=== PATIENT | female | born 1960 | race Caucasian/White ===

== ENCOUNTER 2018-08-08 21:47 | Observation (INO) ==
[2018-08-08 22:20] LABS: Bilirubin,Urine Negative (Negative); Blood,Urine Negative (Negative); Clarity,Urine Clear (Clear); Color,Urine Yellow (Yellow); Glucose,Urine (UA) Normal (Normal); Ketones,Urine Trace mg/dL (Negative); Leukocyte Esterase,Urine Small (Negative); Nitrite,Urine Negative (Negative); PH,Urine 6.5 pH Units (5.0-8.0); Protein,Urine Negative (Neg-Trace); Specific Gravity,Urine 1.013 (1.010-1.025); Urobilinogen,Urine Normal (Normal)
[2018-08-08 22:22] LABS: Basophils % 0.5 %; Eosinophils % 0.6 %; Hemoglobin 14.7 g/dL (11.5-15.4); Immature Granulocytes % 0.2 % (0-4); Lymphocytes # 2.4 K/mcL (0.6-4.6); Mean Corpuscular HGB Conc 34.2 g/dL (31.6-35.5); Mean Corpuscular Hemoglobin 29.7 pg (28.0-33.3); Mean Corpuscular Volume 86.9 fL (83.0-100.0); Mean Platelet Volume 8.7 fL (9.4-12.4); Monocytes # 0.5 K/mcL (0.0-1.3); Monocytes % 7.2 %; Neutrophils # 3.5 K/mcL (1.6-8.9); Platelet Count 250 K/mcL (140-400); Red Blood Count 4.95 M/mcL (3.82-4.97); Red Cell Distribution Width 12.3 % (11.5-14.5); Segmented Neutrophils % 54.5 %; White Blood Count 6.4 K/mcL (4.3-11.1)
[2018-08-08 22:24] LABS: Bacteria,Urine None Seen per hpf (None-Few); Hyaline Casts,Urine None Seen per lpf (None-Few); Squamous Epithelial Cell,Urine Many per lpf (None-Few)
[2018-08-08] MEDS ORDERED: *HR* FentaNYL (PF) 100 MCG/2 ML VIAL IVP ONE (22:24)
--- NOTE | 2018-08-08 22:24 | Emergency Department Note ---
Disposition Clinical Impression: Ureterolithiasis, Renal colic on right side, Acute kidney injury Disposition: Admitted As Inpatient Condition: Good Time of Disposition: 06:54 General Adult HPI - General Chief complaint: ED Abdominal Pain Stated complaint: R Kidney Stone Time Seen by Provider: 08/08/18 22:24 Source: patient, family Mode of arrival: ambulatory Limitations: no limitations Nursing Notes Reviewed: Yes Vital Signs Reviewed: Yes - History of Present Illness HPI Narrative: 58-year-old female past medical history of multiple recurrent renal lithiasis. Patient estimates that she is past 12 stones in her lifetime. Patient is currently being treated by Dr. Graham in urology for a 6 mm stone in the right kidney. Patient passed a 3 mm stone last Friday and was scheduled for lithotripsy to be performed the following day. Patient states that she declined lithotripsy at this time due to pain from prior kidney stone. Lithotripsy was rescheduled for the following Friday the patient states that today she feels as though the stone is moving and is now having excruciating pain in the right lower quadrant of her abdomen 10 out of 10 on the pain scale, consistent with pr ior episodes of kidney stone. Nonradiating, no fevers, chills no chest pain or shortness of breath, no nausea or vomiting, no urinary symptoms, no abnormal bleeding. Patient has no other concerns or complaints at this time. Onset (ago): day(s) Location: abdomen Radiation: non-radiation Pain Severity: severe, similar to prior episodes Pain Scale: 10 Quality: stabbing, sharp Consistency: constant, Worsening Associated symptoms: Reports: nausea/vomiting Treatments Prior to Arrival: none - Related Data Home Medications Medication Instructions Recorded Confirmed Levothyroxine [Synth[place]] [place] [address]/22/17 08/08/18 Lovastatin 10 mg PO DAILY 12/22/17 08/08/18 Allergies Allergy/AdvReac Type Severity Reaction Status Date / Time No Known Allergies Allergy Verified 08/08/18 21:54 Review of Systems: *See History of Present Illness for more detail Constitutional: Denies: fever, chills Cardiovascular: Denies: chest pain Respiratory: Denies: dyspnea, cough, hemoptysis Gastrointestinal: Admits to right lower quadrant abdominal pain, nausea due to pain Denies: nausea, vomiting, diarrhea, constipation, hematemesis, melena, hematochezia Genitourinary: Denies: hematuria Musculoskeletal: Denies: back pain, neck pain Neurological: Denies: headache, weakness, lightheadedness/dizziness, numbness, paresthesias, difficulty with ambulation. Endocrine: Denies: fatigue All systems ED: reviewed and negative except as stated. Review of Systems: As Per HPI Past Medical History - Past Medical History Medical history: Reports: kidney stones - Social History Smoking Status: Never smoker Smokeless Tobacco Status: No Alcohol use: Reports: none Drug use: Reports: none Physical Exam Constitutional: Patient appears in moderate distress due to pain is extremely uncomfortable, is unable to find a position of relief, she is otherwise [id number], engaged to conversation, speech is fluid, answers questions appropriately Neuro: GCS 15, no overt focal neurological deficits Head: Atraumatic, normocephalic Eyes: Pupils equal, round and reactive to light, no scleral icterus, no conjunctival injection Neck: Trachea midline without deviation. Anterior neck is supple without swelling. *Chest: Symmetric chest wall rise *Heart: Cardiac rhythm and rate are regular with S1 and S2 , no S3 or S4 appreciated, no murmurs, gallops, rubs, or clicks. *Lungs: Lungs are clear to auscultation bilaterally, without accessory muscle use or prolonged expiratory phase. No wheezes, rhonchi or stridor appreciated. Abdomen: Abdomen is diffusely tender to palpation. Abdomen is flat, soft to palpation, normal bowel sounds. No abdominal bruit auscultated. Non-distended, non-rigid, no organomegaly, no ascites appreciated. No pulsatile mass, no guarding to palpation in all four quadrants, no rebound Extremities: Normal capillary refill without evidence of pedal edema, joint swelling or erythema. Pulses/motor/sensory intact in all 4 extremities. Psychiatric exam: Patient displays a normal affect and mood for the environment. No overt signs of hallucination. Integumentary: warm, dry, intact, normal color. No rash, cyanosis, diaphoresis, erythema, or pallor - General Limitations: no limitations General appearance: alert, in no apparent distress Course Course Narrative: Concern for obstructing renal lithiasis in the right ureter. Evaluations: Abdominal labs plus CT scan of the abdomen and pelvis Treatments: IV fluid, fentanyl and Zofran for the management of patient's sympto ms. *Patient was given an initial dose of fentanyl and the ED for management of pain which did not significantly relieve her symptoms. 0.5 mg Dilaudid was administered - Reevaluation(s) Reevaluation #1: Spoke with Dr. Graham in urology regarding management here in the ED. Dr. Graham agrees with our current treatment and plan for disposition requests admission to hospitalist medicine service with urology consult. Patient will be admitted to hospitalist medicine service for further evaluation and management of severe pain in the setting of severe hydroureter nephrosis and renal lithiasis. Vital Signs Temperature 97.9 F 08/08/18 21:52 Pulse Rate 73 08/08/18 21:52 Respiratory Rate 16 08/08/18 21:52 Blood Pressure 154/92 08/08/18 21:52 O2 Sat by Pulse Oximetry 99 08/08/18 21:52 Temperature 97.4 F L 08/09/18 06:13 Pulse Rate 64 08/09/18 06:13 Respiratory Rate 15 08/09/18 06:13 Blood Pressure 113/70 08/09/18 06:13 O2 Sat by Pulse Oximetry 96 08/09/18 06:13 Oxygen Delivery Oxygen Delivery Room Air Medical Decision Making - MDM Narrative Medical decision making narrative: Imaging results show right-sided hydroureter nephrosis Elevated creatinine 1.66 with estimate GFR 33 Urology is consulted and is following. Patient admitted to hospital medicine service for pain control. Patient is hemodynamically stable time of admission Dr. Santiago accepting admission. - Lab Data Lab results reviewed: Yes I reviewed the patient's lab results. Result diagrams: 08/08/18 22:07 08/08/18 22:07 Lab Results 08/08/18 08/08/18 08/08/18 Range/Units 22:07 22:07 22:07 WBC 6.4 (4.3-11.1) K/mcL RBC 4.95 (3.82-4.97) M/mcL Hgb 14.7 (11.5-15.4) g/dL Hct 43.0 (35.3-44.9) % MCV 86.9 (83.0-100.0) fL MCH 29.7 (28.0-33.3) pg MCHC 34.2 (31.6-35.5) g/dL RDW 12.3 (11.5-14.5) % Plt Count 250 (140-400) K/mcL MPV 8.7 L (9.4-12.4) fL Immature Gran % 0.2 (0-4) % Seg Neutrophils % 54.5 % Lymphocytes % 37.0 % Monocytes % 7.2 % Eosinophils % 0.6 % Basophils % 0.5 % Neutrophils # 3.5 (1.6-8.9) K/mcL Lymphocytes # 2.4 (0.6-4.6) K/mcL Monocytes # 0.5 (0.0-1.3) K/mcL Eosinophils # 0.0 (0.0-0.6) K/mcL Basophils # 0.0 (0.0-0.2) K/mcL Sodium 142 (136-145) mEq/L Potassium 3.6 (3.5-5.1) mEq/L Chloride 103 (98-107) mEq/L Carbon Dioxide 28 (23-29) mEq/L BUN 18 (6-20) mg/dL Creatinine 1.61 H (0.60-1.20) mg/dL Est GFR ( Amer) 40 L (> 60) Est GFR (Non-Af Amer) 33 L (> 60) BUN/Creatinine Ratio 11 (6-26) Glucose 99 (70-105) mg/dL Calculated Osmolality 296 (280-300) Calcium 10.2 (8.6-10.3) mg/dL Total Bilirubin 0.5 (0.3-1.0) mg/dL Direct Bilirubin 0.1 (0.0-0.2) mg/dL Indirect Bilirubin 0.4 (0.0-1.2) mg/dL AST 24 (13-39) Units/L ALT 19 (7-52) Units/L Alkaline Phosphatase 58 (34-104) Units/L Serum Total Protein 7.6 (6.4-8.9) g/dL Albumin 5.2 (3.5-5.7) g/dL Globulin 2.4 (2.4-3.5) g/dL Albumin/Globulin Ratio 2.2 (1.1-2.2) Amylase 55 (29-103) Units/L Lipase 15 (11-82) Units/L Urine Color Yellow (Yellow) Urine Clarity Clear (Clear) Urine pH 6.5 (5.0-8.0) pH Units Ur Specific [place] 1.013 (1.010-1.025) Urine Protein Negative (Neg-Trace) mg/dL Urine Glucose (UA) Normal (Normal) mg/dL Urine Ketones Trace H (Negative) mg/dL Urine Blood Negative (Negative) Urine Nitrite Negative (Negative) Urine Bilirubin Negative (Negative) Urine Urobilinogen Normal (Normal) mg/dL Ur Leukocyte Esterase Small H (Negative) Urine Microscopic RBC 3-5 H (0-3) per hpf Urine Microscopic WBC 5-15 H (0-3) per hpf Ur Squamous Epith Cells Many H (None-Few) per lpf Urine Bacteria None Seen (None-Few) per hpf Hyaline Casts None Seen (None-Few) per lpf Ur Culture Indicated? YES A (NO) - Radiology Data Radiology results reviewed: Yes I reviewed the patient's radiology results. Abdomen/Pelvis CT 08/08/18 23:09 IMPRESSION: Right-sided hydroureteronephrosis again seen. The tiny calculus at the ureterovesical junction on the right is now within the urinary bladder. D/ / Young Brock MD / Young Brock MD Interpreting Provider: Young Brock MD
[2018-08-08] MEDS ORDERED: Ondansetron 4 MG/2 ML VIAL IVP STA (22:25)
[2018-08-08] MEDS ORDERED: 0.9 % Sodium Chloride 1,000 ML IVC ONE (22:25)
[2018-08-08 22:44] LABS: Albumin 5.2 g/dL (3.5-5.7); Albumin/Globulin Ratio 2.2 (1.1-2.2); Bilirubin,Direct 0.1 mg/dL (0.0-0.2); Bilirubin,Indirect 0.4 mg/dL (0.0-1.2); Bilirubin,Total 0.5 mg/dL (0.3-1.0); Calcium 10.2 mg/dL (8.6-10.3); Globulin 2.4 g/dL (2.4-3.5); Potassium 3.6 mEq/L (3.5-5.1); Total Protein 7.6 g/dL (6.4-8.9)
[2018-08-08] MEDS ORDERED: *HR* HYDROmorphone (PF) 1 MG/ML SYRINGE IVP ONE (23:03)
[2018-08-08] MEDS ORDERED: Ketorolac 15 MG/ML VIAL IVP ONE (23:56)
--- NOTE | 2018-08-09 01:31 | Emergency Department Note ---
Disposition Clinical Impression: Ureterolithiasis, Renal colic on right side, Acute kidney injury Disposition: Admitted As Inpatient Condition: Good Time of Disposition: 01:45 General Adult HPI - General Chief complaint: ED Abdominal Pain Stated complaint: R Kidney Stone Time Seen by Provider: 08/08/18 22:24 Source: patient, family Mode of arrival: ambulatory Limitations: no limitations Nursing Notes Reviewed: Yes Vital Signs Reviewed: Yes - History of Present Illness Pain Scale: 10 - Related Data Home Medications Medication Instructions Recorded Confirmed Levothyroxine [[place]th[place]] [place] [address]/22/17 08/08/18 Lovastatin 10 mg PO DAILY 12/22/17 08/08/18 Allergies Allergy/AdvReac Type Severity Reaction Status Date / Time No Known Allergies Allergy Verified 08/08/18 21:54 Past Medical History - Past Medical History Medical history: Reports: kidney stones - Social History Smoking Status: Never smoker Smokeless Tobacco Status: No Alcohol use: Reports: none Drug use: Reports: none Physical Exam - General Limitations: no limitations General appearance: alert, in no apparent distress Course Vital Signs Temperature 97.9 F 08/08/18 21:52 Pulse Rate 73 08/08/18 21:52 Respiratory Rate 16 08/08/18 21:52 Blood Pressure 154/92 08/08/18 21:52 O2 Sat by Pulse Oximetry 99 08/08/18 21:52 Temperature 98.3 F 08/09/18 02:50 Pulse Rate 77 08/09/18 02:50 Respiratory Rate 15 08/09/18 02:50 Blood Pressure 135/73 08/09/18 02:50 O2 Sat by Pulse Oximetry 94 08/09/18 02:50 Oxygen Delivery Oxygen Delivery Room Air Medical Decision Making - Medical Records Medical records reviewed: Yes I reviewed the patient's medical records. - Lab Data Lab results reviewed: Yes I reviewed the patient's lab results. Result diagrams: 08/08/18 22:07 08/08/18 22:07 Lab Results 08/08/18 08/08/18 08/08/18 Range/Units 22:07 22:07 22:07 WBC 6.4 (4.3-11.1) K/mcL RBC 4.95 (3.82-4.97) M/mcL Hgb 14.7 (11.5-15.4) g/dL Hct 43.0 (35.3-44.9) % MCV 86.9 (83.0-100.0) fL MCH 29.7 (28.0-33.3) pg MCHC 34.2 (31.6-35.5) g/dL RDW 12.3 (11.5-14.5) % Plt Count 250 (140-400) K/mcL MPV 8.7 L (9.4-12.4) fL Immature Gran % 0.2 (0-4) % Seg Neutrophils % 54.5 % Lymphocytes % 37.0 % Monocytes % 7.2 % Eosinophils % 0.6 % Basophils % 0.5 % Neutrophils # 3.5 (1.6-8.9) K/mcL Lymphocytes # 2.4 (0.6-4.6) K/mcL Monocytes # 0.5 (0.0-1.3) K/mcL Eosinophils # 0.0 (0.0-0.6) K/mcL Basophils # 0.0 (0.0-0.2) K/mcL Sodium 142 (136-145) mEq/L Potassium 3.6 (3.5-5.1) mEq/L Chloride 103 (98-107) mEq/L Carbon Dioxide 28 (23-29) mEq/L BUN 18 (6-20) mg/dL Creatinine 1.61 H (0.60-1.20) mg/dL Est GFR ( Amer) 40 L (> 60) Est GFR (Non-Af Amer) 33 L (> 60) BUN/Creatinine Ratio 11 (6-26) Glucose 99 (70-105) mg/dL Calculated Osmolality 296 (280-300) Calcium 10.2 (8.6-10.3) mg/dL Total Bilirubin 0.5 (0.3-1.0) mg/dL Direct Bilirubin 0.1 (0.0-0.2) mg/dL Indirect Bilirubin 0.4 (0.0-1.2) mg/dL AST 24 (13-39) Units/L ALT 19 (7-52) Units/L Alkaline Phosphatase 58 (34-104) Units/L Serum Total Protein 7.6 (6.4-8.9) g/dL Albumin 5.2 (3.5-5.7) g/dL Globulin 2.4 (2.4-3.5) g/dL Albumin/Globulin Ratio 2.2 (1.1-2.2) Amylase 55 (29-103) Units/L Lipase 15 (11-82) Units/L Urine Color Yellow (Yellow) Urine Clarity Clear (Clear) Urine pH 6.5 (5.0-8.0) pH Units Ur Specific [place] 1.013 (1.010-1.025) Urine Protein Negative (Neg-Trace) mg/dL Urine Glucose (UA) Normal (Normal) mg/dL Urine Ketones Trace H (Negative) mg/dL Urine Blood Negative (Negative) Urine Nitrite Negative (Negative) Urine Bilirubin Negative (Negative) Urine Urobilinogen Normal (Normal) mg/dL Ur Leukocyte Esterase Small H (Negative) Urine Microscopic RBC 3-5 H (0-3) per hpf Urine Microscopic WBC 5-15 H (0-3) per hpf Ur Squamous Epith Cells Many H (None-Few) per lpf Urine Bacteria None Seen (None-Few) per hpf Hyaline Casts None Seen (None-Few) per lpf Ur Culture Indicated? YES A (NO) - Radiology Data Radiology results reviewed: Yes I reviewed the patient's radiology results. Abdomen/Pelvis CT 08/08/18 23:09 IMPRESSION: Right-sided hydroureteronephrosis again seen. The tiny calculus at the ureterovesical junction on the right is now within the urinary bladder. D/ / Young Brock MD / Young Brock MD Interpreting Provider: Young Brock MD Attestation Statement - Attestation Attestation: I, Eber Medina MD, personally evaluated this patient and discussed their management with the resident physician. I reviewed the resident's note and agree with the documented findings, medical decision making, and plan of care. 58-year-old female with a known kidney stone the right presents to the emergency department with a complaint of acute worsening of her right flank pain about 7 PM this evening. She states she has had some mild pain intermittently throughout the day but it became severe this evening. She has had nausea and vomiting and diaphoresis associated with the pain. Patient has a known kidney stone in the proximal right ureter and is actually scheduled for lithotripsy on Friday with Dr. Graham. No fever. On examination patient is a well-developed well-nourished well-appearing female in no acute distress. She does appear to be in moderate discomfort. Breath sounds are clear and equal bilaterally. Heart regular rate and rhythm. Abdomen is soft with normal bowel sounds. There is moderate right mid abdominal tenderness and right CVA tenderness. Labs reviewed. CT shows a stone in the proximal right ureter with right hydroureteronephrosis. Here in the emergency department the patient received Toradol, fentanyl, and Dilaudid IV with continued pain. The urologist taxation consultant, Dr. Graham, was consulted and recommended admission by the hospitalist for pain control and he will consult on the patient. The hospitalist, Dr. Santiago, was consulted and accepted admission of the patient.
--- NOTE | 2018-08-09 02:02 | Internal Med History&Physical ---
Date of Encounter: 08/09/18 Time of Encounter: 01:55 Internal Medicine - H&P: HPI Chief complaint: Flank Pain History of present illness: Ms. Matthews is a 58 year old female with past medical history of recurrent nephrolithiasis presents to the ED with complaints of right lower quadrant pain. Patient is seen by Dr. Graham with urology and was recently evaluated for a 6 mm right-sided kidney stone. Patient states that last Friday she passed a 3 mm stone and was scheduled to undergo a lithotripsy procedure the following day but declined to go through the procedure. Lithotripsy was rescheduled for the following Friday. She currently feels as though the stone is moving and is now having excruciating pain in the right lower quadrant, described as sharp, 10 out of 10 in intensity and constant. Patient denies any fever, chills, nausea or vomiting. No reports of dysuria, frequency or urgency. Denies hematuria. On arrival patient was afebrile and hemodynamically stable. No leukocytosis on CBC. Patient's creatinine found to be slightly elevated at 1.61. UA unremarkable. CT of the abdomen shows right-sided hydroureter nephrosis. Patient received fluids and pain control in the ED. Urology consult in for further evaluation. Past Med Surg Social Fam HX - Past Medical History Medical history: kidney stones - Social History Smoking Status: Never smoker Smokeless Tobacco Status: No Alcohol use: none Drug use: none - Family History Mother Living Status: Still Living Age at : 77 Hx Family Cardiac Disorders: Yes Father Living Status: Still Living Age at : 85 Internal Medicine - H&P: Meds Levothyroxine [Synthroid] 25 mcg PO 30 12/22/17 [History] Lovastatin 10 mg PO DAILY 12/22/17 [History] HYDROcodone/Acet 5/325 mg [[place] 5-325 mg] 1 tab PO Q6H PRN 3 Days #10 tab 08/09/18 [Rx] Allergy/AdvReac Type Severity Reaction Status Date / Time No Known Allergies Allergy Verified 08/08/18 21:54 All Systems PM: A 10-system review of systems was performed and is negative for pertinent findings except as documented above in the HPI. - Constitutional Constitutional: no chills, no fever(s), no night sweats - EENT Eyes: no change in vision, no discharge, no pain, no photophobia Ears: no ear discharge, no ear pain, no tinnitus Nose, mouth and throat: no dysphagia, no nasal discharge, no neck pain, no sore throat - Cardiovascular Cardiovascular ROS IM: no chest pain, no diaphoresis, no dyspnea, no lightheadedness, no palpitations, no syncope - Respiratory Respiratory: no cough, no dyspnea, no wheezing, no excessive phlegm production - Gastrointestinal Gastrointestinal: no abdominal pain, no diarrhea, no hematemesis, no hematochezia, no melena, no nausea, no vomiting - Genitourinary Genitourinary: no change in urinary stream, no dysuria, no flank pain, no hematuria - Musculoskeletal Musculoskeletal ROS IM: no numbness, no tingling - Integumentary Integumentary IM: no rash, no unusual bruising - Neurological Neurological ROS: no confusion, no convulsions, no focal weakness, no numbness, no tingling, no tremor(s) - Hematologic/Lymphatic Hematologic/Lymphatic: no easy bruising - Constitutional Vitals: Temp Pulse Resp BP Pulse Ox 97.9 F 81 16 157/80 100 08/08/18 21:52 08/08/18 23:16 08/08/18 23:16 08/08/18 23:16 08/08/18 23:16 Exam: General: Alert and oriented 3 lying in bed in no acute distress Skin:Normal color, no rash, no lesions. HEENT:EOM, pupils equal, round and reactive. Cardiovascular:Normal S1 & S2, no rubs, murmurs or gallops. No JVD. Pulse regular. Lungs:Normal breath sounds, no wheezes or crackles. Abdomen:Soft, non-tender, no rigidity. Extremities:No deformity, no edema or tenderness, no joint swelling or clubbing. Neurological:Normal cognition and motor skills. Pulses:Carotid and radial pulses normal +2. Rest of the physical exam is non contributory Internal Med - H&P Results - Labs CBC & Chem 7: 08/08/18 22:07 08/09/18 05:04 Labs: Short CBC 08/08/18 Range/Units 22:07 WBC 6.4 (4.3-11.1) K/mcL Hgb 14.7 (11.5-15.4) g/dL Hct 43.0 (35.3-44.9) % Plt Count 250 (140-400) K/mcL Neutrophils # 3.5 (1.6-8.9) K/mcL BMP 08/08/18 22:07 Sodium 142 Potassium 3.6 Chloride 103 Carbon Dioxide 28 BUN 18 Creatinine 1.61 H Glucose 99 Calcium 10.2 Liver Function 08/08/18 Range/Units 22:07 Total Bilirubin 0.5 (0.3-1.0) mg/dL Direct Bilirubin 0.1 (0.0-0.2) mg/dL AST 24 (13-39) Units/L ALT 19 (7-52) Units/L Alkaline Phosphatase 58 (34-104) Units/L Albumin 5.2 (3.5-5.7) g/dL Urine 08/08/18 Range/Units 22:07 Urine Color Yellow (Yellow) Urine Clarity Clear (Clear) Urine pH 6.5 (5.0-8.0) pH Units Ur Specific [place] 1.013 (1.010-1.025) Urine Protein Negative (Neg-Trace) mg/dL Urine Glucose (UA) Normal (Normal) mg/dL - Impressions ITS Impressions Abdomen/Pelvis CT 08/08/18 23:09 IMPRESSION: Right-sided hydroureteronephrosis again seen. The tiny calculus at the ureterovesical junction on the right is now within the urinary bladder. D/ / Young Brock MD / Young Brock MD Interpreting Provider: Young Brock MD - Assessment and Plan (1) Hydronephrosis Status: Acute Assessment and plan: Patient presented with right-sided hydroureter nephrosis in the setting of right-sided abdominal and flank pain. No evidence of stone obstruction on CT. Stone visualized within the bladder. Right-sided hydronephrosis likely residual from previous stone obstruction. Case was discussed with Dr. Graham who will see the patient in the morning. No further intervention planned as of now. -Resume diet -Pain management as needed -Continue fluids and monitor kidney function. -Follow up urology recommendations Qualifiers: Hydronephrosis type: other Qualified Code(s): N13.39 - Other hydronephrosis (2) History of nephrolithiasis Status: Acute Assessment and plan: History of recurrent nephrolithiasis. No evidence of obstructing stone at this time despite findings of hydroureteronephrosis on CT scan of the abdomen. -Appreciate urology input (3) Acute kidney injury Status: Acute Assessment and plan: Patient presenting with a mild elevation in creatinine of 1.61 in the setting of right-sided hydroureteronephrosis. Baseline creatinine appears to be closer to 1.0. -Continue IV fluids -Monitor kidney function -Evaluation per urology (4) Hypothyroidism Status: Acute Assessment and plan: Hold levothyroxine for now Qualifiers: Hypothyroidism type: unspecified Qualified Code(s): E03.9 - Hypothyroidism, unspecified (5) DVT prophylaxis Status: Acute Assessment and plan: Intermittent sequential compression devices - Time Spent With Patient Total time spent is greater than 50% in coordination of care (as documented) at patient's floor/unit and/or counseling patient:
[2018-08-09] MEDS ORDERED: Naloxone 0.4 MG/ML INJ IVP PRN (02:04)
[2018-08-09] MEDS ORDERED: Ondansetron 4 MG/2 ML VIAL IVP PRN (02:04)
[2018-08-09] MEDS ORDERED: OXYCODONE Oral CONC 10 MG/0.5 ML ORAL.SYG SL PRN ×2 (02:04)
[2018-08-09] MEDS: 0.9 % Sodium Chloride 1,000 ML IVC SCH ×2 (03:15→09:55)
[2018-08-09] MEDS ORDERED: Dextrose Gel 15 GM/37.5 ML TUBE PO PRN ×2 (03:20)
[2018-08-09] MEDS ORDERED: D5% in Water 1,000 ML IVC PRN (03:20)
[2018-08-09] MEDS ORDERED: *HR* Dextrose 50 % in Water (Syg) 50 ML SYRINGE IVP PRN (03:20)
[2018-08-09] MEDS: Ketorolac 15 MG/ML VIAL IVP PRN ×2 (03:51→09:52)
[2018-08-09 06:17] VITALS: BP 113/70
[2018-08-09 06:57] LABS: Calcium 8.8 mg/dL (8.6-10.3); Potassium 3.9 mEq/L (3.5-5.1)
--- NOTE | 2018-08-09 08:46 | Urology - Consult Note ---
Date of Encounter: 08/09/18 Time of Encounter: 08:44 - Assessment and Plan (1) Hydronephrosis Current Visit: Yes Status: Acute Assessment and plan: Patient seen last week in clinic for obstructing near 6 mm right renal calculus. She passed a stone she believes was 3 mm on Friday. Severe pain last night resulted in trip to the emergency department. Repeat CT shows a recently passed 12 millimeter fragment in bladder. Patient now pain-free. No evidence of active infection. Plan: Okay for discharge from urology standpoint. My office will arrange outpatient follow-up for metabolic evaluation and stone prevention. Qualifiers: Hydronephrosis type: other Qualified Code(s): N13.39 - Other hydronephrosis (2) Renal colic on right side Current Visit: Yes Status: Acute Assessment and plan: Significantly improved to resolved status post passage of 1-2 mm right ureteral calculus into bladder at time of CT scan last evening. Plan: Okay to discharge to home from urology standpoint. My office will arrange outpatient follow-up for stone prevention. (3) Ureterolithiasis Current Visit: Yes Status: Acute Assessment and plan: 6 mm calculus with flank pain when evaluated in office last week. Patient passed a fairly large stone she got was round 3 mm late last week. Patient presented to the hospital last night for severe onset of right flank pain. CT shows recently last 1-2 mm stone in bladder. Currently pain-free. Plan: Okay to discharge to home from urology standpoint. My office will arrange outpatient follow-up for stone prevention measures. Urology CN:HPI Consult date: 08/09/18 Reason for consult Urology: Hydronephrosis Requesting physician: Helder Stuart History of present illness: Ms. Matthews is a 58 year old female with past medical history of recurrent nephrolithiasis presents to the ED with complaints of right lower quadrant pain. Patient is seen by Dr. Graham with urology and was recently evaluated for a 6 mm right-sided kidney stone. Patient states that last Friday she passed a 3 mm stone and was scheduled to undergo a lithotripsy procedure the following day but declined to go through the procedure. Lithotripsy was rescheduled for the following Friday. She currently feels as though the stone is moving and is now having excruciating pain in the right lower quadrant, described as sharp, 10 out of 10 in intensity and constant. Patient denies any fever, chills, nausea or vomiting. No reports of dysuria, frequency or urgency. Denies hematuria. On arrival patient was afebrile and hemodynamically stable. No leukocytosis on CBC. Patient's creatinine found to be slightly elevated at 1.61. UA unremarkable. CT of the abdomen shows right-sided hydroureter nephrosis. Patient received fluids and pain control in the ED. Urology consult in for further evaluation. Past Med Surg Social Fam HX - Past Medical History Medical history: hyperlipidemia, kidney stones, thyroid disease Psychiatric history: no psych history - Past Surgical History Additional surgical history: hysterectomy - Social History Smoking Status: Never smoker Smokeless Tobacco Status: No Alcohol use: occasionally Drug use: none - Family History Mother Living Status: Still Living Age at : 77 Hx Family Cardiac Disorders: Yes Father Living Status: Still Living Age at : 85 Medications and Allergies Levothyroxine [Synthroid] 25 mcg PO 0630 12/22/17 [History] Lovastatin 10 mg PO DAILY 12/22/17 [History] Allergy/AdvReac Type Severity Reaction Status Date / Time No Known Allergies Allergy Verified 08/08/18 21:54 Review of Systems - Constitutional no chills, no fever(s) - Cardiovascular no chest pain, no diaphoresis - Respiratory no cough, no dyspnea - Gastrointestinal abdominal pain, nausea - Genitourinary Genitourinary: flank pain, no dysuria - Musculoskeletal back pain, no muscle weakness - Integumentary no lesions, no rash - Neurological no confusion, no sensory deficit - Psychiatric no anxiety, no confusion - Hematologic/Lymphatic no easy bleeding, no easy bruising - Allergic/Immunologic no throat swelling, no wheezing Exam Initial Vital Signs Temp Pulse Resp BP Pulse Ox 97.9 F 73 16 154/92 99 08/08/18 21:52 08/08/18 21:52 08/08/18 21:52 08/08/18 21:52 08/08/18 21:52 - General physical appearance Present: well developed, well nourished, no distress - Eyes Present: normal ocular movement. Absent: icteric - ENT Present: normal mucosa, no hearing loss - Neck Present: trachea midline - Respiratory Present: normal respiratory effort - Abdomen Abdomen: Absent: guarding - Integumentary Absent: no rash, no growths - Neurologic Present: normal coordination. Absent: disoriented - Musculoskeletal Present: other (Normal posture. Moves all 4 extremities) Urology Results - Labs 08/08/18 22:07 08/09/18 05:04 Abnormal lab results MPV 8.7 fL (9.4-12.4) L 08/08/18 22:07 Chloride 109 mEq/L (98-107) H 08/09/18 05:04 BUN 22 mg/dL (6-20) H 08/09/18 05:04 1.31 mg/dL (0.60-1.20) H 08/09/18 05:04 Est GFR ( Amer) 51 (> 60) L 08/09/18 05:04 Est GFR (Non-Af Amer) 42 (> 60) L 08/09/18 05:04 Glucose 107 mg/dL (70-105) H 08/09/18 05:04 Trace mg/dL (Negative) H 08/08/18 22:07 Ur Leukocyte Esterase Small (Negative) H 08/08/18 22:07 3-5 per hpf (0-3) H 08/08/18 22:07 5-15 per hpf (0-3) H 08/08/18 22:07 Ur Squamous Epith Cells Many per lpf (None-Few) H 08/08/18 22:07 Ur Culture Indicated? YES (NO) A 08/08/18 22:07 Diabetes panel 08/08/18 08/09/18 Range/Units 22:07 05:04 Sodium 142 142 (136-145) mEq/L Potassium 3.6 3.9 (3.5-5.1) mEq/L Chloride 103 109 H (98-107) mEq/L Carbon Dioxide 28 26 (23-29) mEq/L BUN 18 22 H (6-20) mg/dL Creatinine 1.61 H 1.31 H (0.60-1.20) mg/dL Glucose 99 107 H (70-105) mg/dL Calcium 10.2 8.8 (8.6-10.3) mg/dL AST 24 (13-39) Units/L ALT 19 (7-52) Units/L Alkaline Phosphatase 58 (34-104) Units/L Albumin 5.2 (3.5-5.7) g/dL Calcium panel 08/08/18 08/09/18 Range/Units 22:07 05:04 Calcium 10.2 8.8 (8.6-10.3) mg/dL Albumin 5.2 (3.5-5.7) g/dL Pituitary panel 08/08/18 08/09/18 Range/Units 22:07 05:04 Sodium 142 142 (136-145) mEq/L Potassium 3.6 3.9 (3.5-5.1) mEq/L Chloride 103 109 H (98-107) mEq/L Carbon Dioxide 28 26 (23-29) mEq/L BUN 18 22 H (6-20) mg/dL Creatinine 1.61 H 1.31 H (0.60-1.20) mg/dL Glucose 99 107 H (70-105) mg/dL Calcium 10.2 8.8 (8.6-10.3) mg/dL Adrenal panel 08/08/18 08/09/18 Range/Units 22:07 05:04 Sodium 142 142 (136-145) mEq/L Potassium 3.6 3.9 (3.5-5.1) mEq/L Chloride 103 109 H (98-107) mEq/L Carbon Dioxide 28 26 (23-29) mEq/L BUN 18 22 H (6-20) mg/dL Creatinine 1.61 H 1.31 H (0.60-1.20) mg/dL Glucose 99 107 H (70-105) mg/dL Calcium 10.2 8.8 (8.6-10.3) mg/dL Total Bilirubin 0.5 (0.3-1.0) mg/dL AST 24 (13-39) Units/L ALT 19 (7-52) Units/L Alkaline Phosphatase 58 (34-104) Units/L Albumin 5.2 (3.5-5.7) g/dL All other labs normal. - Imaging CT scan - abdomen: image reviewed CT scan - pelvis: image reviewed Consult Discharge Plan - Plan Referrals: NONE,PCP [Primary Care Provider] -
--- NOTE | 2018-08-09 09:53 | Discharge Summary ---
- NOTES TO OUTPATIENT PROVIDER Notes to Outpatient Provider: Follow-up with urology as outpatient. BMP in 5 days Orders not resulted at time of discharge: Pending orders 08/08/18 22:07 Culture,Urine [RM] Stat Date of Encounter: 08/09/18 Time of Encounter: 07:45 - Discharge Diagnosis (1) Hydronephrosis Priority: Primary Status: Acute Qualifiers: Hydronephrosis type: other Qualified Code(s): N13.39 - Other hydronephrosis (2) Acute kidney injury Priority: Secondary Status: Acute (3) History of nephrolithiasis Priority: Secondary Status: Acute (4) DVT prophylaxis Priority: Secondary Status: Acute (5) Hypothyroidism Priority: Secondary Status: Acute Qualifiers: Hypothyroidism type: unspecified Qualified Code(s): E03.9 - Hypothyroidism, unspecified Hospital course: Ms. Matthews is a 58 year old female with history of nephrolithiasis was admitted for right hydronephrosis and GALA secondary to recently passed stone. ALthough CT scan demonstrated R hydroureteronephrosis, there were stone fragments seen in the bladder. GALA improved with IVF. Seen in consultation with urology given her symptomatic improvement after overnight observation and finding of stone fragments in bladder, she can be discharged with close Urology follow up as outpatient. She will get repeat BMP in 5 days, encouraged for fluid intake. and will be discharged in stable condition on 08/09. Discharge discussed with: patient, family, nurse - Time Spent with Patient Total time spent providing and/or coordinating discharge services: 27 mins - Discharge Medications Prescriptions: Continued Levothyroxine [Synthroid] 25 mcg PO 0630 Lovastatin 10 mg PO DAILY Home Medications: Levothyroxine [Synthroid] 25 mcg PO 0630 12/22/17 [History] Lovastatin 10 mg PO DAILY 12/22/17 [History] Allergies/Adverse Reactions: Allergy/AdvReac Type Severity Reaction Status Date / Time No Known Allergies Allergy Verified 08/08/18 21:54 Date of admission: 08/09/18 01:58 Primary care physician: PCP NONE Consults: 08/09/18 00:17 Consult to Urology [CONS] Stat Consulting Provider: Urology Kimberly Reason for Consult: Right-sided hydroureteronephrosis Time Notified: 00:17 Call Completed: Yes - Constitutional Vitals: Temp Pulse Resp BP Pulse Ox 97.4 F L 64 15 113/70 96 08/09/18 06:13 08/09/18 06:13 08/09/18 06:13 08/09/18 06:13 08/09/18 07:47 Exam: General: Alert and oriented, not in acute distress. Cardiovascular:Normal S1 & S2, No JVD. Pulse regular. Lungs: clear to auscultation, no wheezes/rales Abdomen:Soft, non-tender, no rigidity. : No CVA tenderness Extremities:No deformity or swelling Neurological:Normal cognition and motor skills. Non-focal - Patient Status Disposition: Home, Self-Care Condition: Good Functional capacity at discharge: independent ambulation Overall status at discharge: patient is progressing back to baseline - Discharge Instructions Instructions: Hypothyroidism (DC) Follow Up With: NONE,PCP [Primary Care Provider] - Francisco Graham [Partnered Physician] - - Diet and Activity Activity: resume usual activities as tolerated Diet: advance to your usual diet
== END 2018-08-09 11:27 | disposition home or self-care (01) ==
LOC: 3ANU 21:47 → EMEROOARM 21:47 → SUATTDRO 08-09 01:58 → 3ANU 08-09 02:43
PROVIDERS: ADMIT Internal Medicine; ATTEND Internal Medicine